=== PATIENT | male | born 1960 | race Caucasian/White ===

== ENCOUNTER 2016-08-25 15:13 | Emergency (ER) | payer MEDICAID, OTHER ==
[~2016-08-25] VITALS: Ht 175.3 cm; Wt 73.2 kg
[2016-08-25 15:18] VITALS: BP 168/97; PULSE 88; RESP 16; O2SAT 96
--- NOTE | 2016-08-25 17:11 | ED.REPORT ---
HPI-Trauma Minor / Fall Date of Service Aug 25, 2016 ED Provider: Doc,Ed MD History of Present Illness: tripped over chopping block on Monday, neck and right shoulder pain, seen at . cat scan of neck and shoulder normal, no primary care. took 2 ibuprofen this am no help given vicodin #20. gone 05/09 pain. Was at because brother was having a biospy of his pancreas for possible pancreatic cancer. Came from [place] in April for this. Nursing Notes Stated Complaint: R ARM/NECK PAIN Chief Complaint: Back Pain or Injury Nursing Notes Reviewed: Yes Allergies: Coded Allergies: No Known Allergies (Unverified , 08/25/16) General Time Seen by MD: 17:11 Chief Complaint Fall Hx Obtained From: Patient Onset Occurred: 5 days ago Past Medical History Past Medical History Denies: Asthma, Diabetes mellitus Past Surgical History back surgery 2003 Smoking History Current Every Day Smoker (1/2 pack a day for 40 years) Social History Alcohol Use: Denies alcohol use Drug Use: THC Occupation lives with brother no work or school 08/25/2016, came from [place] in 04/2016. will be returning to [place] Review of Systems Basic Review of Systems Cardiovascular: No chest pain, No dyspnea on exertion, No orthopnea, No parox noct dyspnea, No palpitations GI: No abdominal pain, No anorexia, No nausea, No vomiting : No dysuria, No frequency Hematologic: No bleeding, No bruising Endocrine: No cold intolerance, No heat intolerance, No weight gain, No weight loss Allergy / Immune: No allergy Psychiatric: Normal thought content Physical Exam Initial Vital Signs Vital Signs (First) Date Time Temp Pulse Resp B/P Pulse Ox O2 Delivery O2 Flow Rate FiO2 08/25/16 15:18 36.4 88 16 168/97 96 Room Air Initial VS: Reviewed, Vital signs abnormal Head / Eyes: Atraumatic, Normocephalic, PERRL ENT: Mucous membranes moist, Conjunctiva normal, No scleral icterus Respiratory: Breath sounds normal, Clear to auscultation, No respiratory distress Cardiovascular: Regular rate & rhythm, Heart sounds normal, Intact distal pulses Abdomen / GI: Soft, Non-tender, No guarding, No rebound, No distention Back: No CVA tenderness Lymphatic: No lymphadenopathy Extremities: Vascular intact, Neuro intact, No swelling, No tenderness Skin: Warm, Dry, No cyanosis Neurologic: Alert, Oriented, Nonfocal Psychiatric: Mood/affect normal, Behavior normal, Normal thought content General/Constitutional: Awake, Alert, No acute distress, Well appearing, Well developed, Well hydrated Appearance / Presentation: Positive: Appears older than age Neck: Atraumatic, Supple, No meningismus, Full range of motion, No adenopathy excellent range of motion Head / Eyes: Atraumatic, Normocephalic, PERRL, EOMI, No nystagmus Respiratory / Chest: Atraumatic, Breath sounds NL, Breath sounds = bilat, No respiratory distress Cardiovascular: Heart rate NL, Regular rhythm, Heart sounds NL, No gallop Re-Eval/Medical Decision Med Decision/Clinical Course patient with negative CT of neck and normal x-ray per his report. No indication of any life threatening condition Discharge & Departure Impression: Primary Impression: Neck and shoulder pain Disposition: Home Patient Instructions: Neck Strain Exercises (GEN), Shoulder Sprain (ED) Additional Instructions: Movement is important, please continue as tolerated. Start decadron 10 mg daily for 3 days. Use hydrocodone 1 in the am and 1 in the pm for 5 days. Can use visteral to help with muscle relaxation to help you sleep. If you are staying in [place], please establish in primary care, consider the residency clinic. I am glad your brother is OK. If refills are needed for your medication, you will need to be seen in primary care. Referrals: [facility] EDSupervising Provider for APC: Young Shanks MD copies to: [facility] Jennifer Mondragon Aug 25, 2016 17:11
[2016-08-25] MEDS ORDERED: Ketorolac 30 mg/mL 2 mL Inj IM ONE (17:25)
== END 2016-08-25 17:59 | disposition home or self-care (01) ==
LOC: SED 15:13
DX: M54.2 Cervicalgia (principal); M25.511 Pain in right shoulder; W18.09XA Striking against other object with subsequent fall, initial encounter; Y93.9 Activity, unspecified; Y92.9 Unspecified place or not applicable; Y99.8 Other external cause status; F17.200 Nicotine dependence, unspecified, uncomplicated
CPT/HCPCS: 96372; 99283; J1885

== ENCOUNTER 2016-09-07 09:16 | Emergency (ER) | payer MEDICAID, OTHER ==
[~2016-09-07] VITALS: Ht 172.7 cm; Wt 72.7 kg
[2016-09-07 09:42] VITALS: BP 185/105; PULSE 75; RESP 16; O2SAT 97
--- NOTE | 2016-09-07 10:05 | ED.REPORT ---
HPI-Trauma Minor / Fall Date of Service Sep 07, 2016 ED Provider: Doc,Ed MD 56 year old male patient with a history of hepatitis c, presents to ED with severe neck pain that has been ongoing for the last 3-4 weeks ago. The pain travels down his right upper extremity and remains constant. Yesterday he developed numbness in his right thumb and this morning he dropped a coffee cup that he was holding in his right hand. The patient states his pain began after he fell 4 weeks ago and "landed" on his neck. After the injury initially occurred he was given 5mg of hydrocodone and Robaxin which relieved his pain. He reports having a CT during this initial visit as well that was negative. He has been taking Tylenol over the last several days with minimal relief. He was scheduled to have an MRI about 10 days ago but was unable to sit still due to pain. He reports no medication allergies. Nursing Notes Stated Complaint: RIGHT SHOULDER INJURY Chief Complaint: Head, Face, Neck Trauma Nursing Notes Reviewed: Yes Allergies: Coded Allergies: No Known Allergies (Unverified , 08/25/16) Scheduled PRN Naproxen (Naproxen) 500 Mg Tab 500 MG PO BID PRN PRN For Pain Oxycodone (Roxicodone) 5 Mg Tablet 5 MG PO Q4H PRN PRN For Pain General Time Seen by MD: 10:05 Chief Complaint Neck pain Hx Obtained From: Patient Arrived By: Walk-in Onset Occurred: More than a week ago... (2 weeks) Symptom Duration: Since onset Caused by: Fall on ground Location: Neck Quality: Painful Severity: Current: Severe Severity: Maximum: Severe Recent Healthcare: Recent doctor visit (Visitied Dr. Eduard MD in [place] on 09/01/2016. Patient failed to complete MRI in [facility] 2 days ago because pain was too sever to lay down. ) Similar Sx Previous: Yes Past Medical History Past Medical History Patient had CT at [facility] at time of injury 3 weeks ago[address] Patient visied Dr. Dyllan MD in [place] on 09/01/2016 for chronic neck pain. Hepatitis C. Past Surgical History laminectomy to L4-5 in 2003 Family History Noncontributory Smoking History Former Smoker Social History Alcohol Use: Denies alcohol use Drug Use: THC Other Social History: Good social support Ambulatory Status Independent Review of Systems Musculoskeletal: Reports: Extremity pain (right upper extremity), Neck pain Neurologic: Reports: Focal weakness (right hand), Numbness (right thumb.) Complete sys rev & neg: except as marked. Physical Exam Initial Vital Signs Vital Signs (First) Date Time Temp Pulse Resp B/P Pulse Ox O2 Delivery O2 Flow Rate FiO2 09/07/16 09:42 36.3 75 16 185/105 97 Room Air Initial VS: Reviewed Head / Eyes: Atraumatic, Normocephalic ENT: Mucous membranes moist, Conjunctiva normal, No scleral icterus Extremities: No swelling Skin: Warm, Dry, No cyanosis Neurologic: Alert, Oriented, Nonfocal Psychiatric: Mood/affect normal, Behavior normal, Normal thought content General/Constitutional: Awake, Alert Trauma - Neck Specific: Positive: Immobilized - C Collar Head / Eyes: Atraumatic, Normocephalic, PERRL, EOMI Respiratory / Chest: No respiratory distress Vascular intact Back: Atraumatic Upper Extremity / MS: Vascular intact Pain with abduction of shoulder, pain with elbow flexion. Wrist / Hand: Vascular intact Diminished sensation to pin prick along C6 distribution on right thumb. Re-Eval/Medical Decision Med Decision/Clinical Course Patient presents with a subacute neck injury several weeks he does have some radicular symptoms which may indicate nerve root compression however there is no indication he has a spinal cord lesion that would need emergency compression based on clinical exam. He is given naproxen and oxycodone. Overall it seems this patient is missing follow-ups and scheduled appointments based on our discussion. He is strongly urged to follow-up with the residency clinic. A follow-up appointment is made with the residency clinic. Return precautions given. Source of Hx: Old records Re-Evaluation/Progress : Time of Eval: 11:04 Re-Evaluation/Progress Note: Rechecked the patient. Discussed plan for discharge. All questions were addressed. Counseled Regarding: Diagnosis, Need for follow-up, When/why to return to ED Discharge & Departure Impression: Primary Impression: Neck and shoulder pain Disposition: Home Discharge Condition All VS Reviewed: Yes Condition: Stable Additional Instructions: Thank you for entrusting us with your care today. At some point, you will absolutely need an MRI of your neck. You will need to follow-up with the MRI facility where you had it previously scheduled in order to obtain your MRI. Follow-up with your primary care clinic for ongoing and further pain management. You have an appointment on September 13 at 10:[address] Maher. Return to the ER if you develop a high fever, loss of bowel or bladder function , inability to walk, or other concerns. Referrals: [facility] Res[facility] (PCP) Scribe Attestation Portions of this note were transcribed by Obey Sinha and Juju Kingston. I, Dr. Maddi Larsen, personally performed the history, physical exam and medical decision- making; I reviewed and confirmed the accuracy of the information in the transcribed note. Signed by: Obey Kingston, [place], 09/07/2016 and 1105. copies to: [facility] Franco Givens DO Sep 07, 2016 10:05 Obey Sinha Sep 07, 2016 10:35 Juju Kingston Sep 07, 2016 10:55
[2016-09-07] MEDS ORDERED: OXYC-474 PO (11:04)
[2016-09-07] MEDS ORDERED: NPR500T PO (11:04)
== END 2016-09-07 11:21 | disposition home or self-care (01) ==
LOC: SED 09:16
DX: M54.2 Cervicalgia (principal); M25.511 Pain in right shoulder; W18.30XA Fall on same level, unspecified, initial encounter; Y93.9 Activity, unspecified; Y99.8 Other external cause status; Y92.019 Unspecified place in single-family (private) house as the place of occurrence of the external cause; Z87.891 Personal history of nicotine dependence